=== PATIENT | male | born 1980 | race Hispanic/Latino ===

== ENCOUNTER 2022-11-22 10:50 | Emergency (ER) | payer OTHER ==
[~2022-11-22] VITALS: Ht 172.7 cm; Wt 72.6 kg
[2022-11-22] MEDS ORDERED: ACETAMINOPHEN 500 MG TABLET ONE (11:16)
[2022-11-22] MEDS ORDERED: IBUPROFEN 600 MG TABLET PO ONE (12:30)
[2022-11-22] MEDS ORDERED: PHEN118L19 PO (13:06)
[2022-11-22] MEDS ORDERED: PSEU120T62 PO (13:06)
[2022-11-22] MEDS ORDERED: AMOX-426 PO (13:06)
[2022-11-22] MEDS ORDERED: NIRM1TAB PO (13:06)
[2022-11-22] MEDS ORDERED: IBUP-2070 PO (13:06)
[2022-11-22 14:05] VITALS: BP 124/74
== END 2022-11-22 14:06 | disposition home or self-care (01) ==
LOC: EDH 10:50
DX: U07.1 COVID-19 (principal); I10 Essential (primary) hypertension
CPT/HCPCS: 99283; 87635; 87880; 87804 ×2; C9803

== ENCOUNTER → 2022-11-22 | Outpatient (CLI) | payer OTHER ==
[~2022-11-22] MED LIST: AMOX-426 PO; IBUP-2070 PO; NIRM1TAB PO; PHEN118L19 PO; PSEU120T62 PO
== END | disposition home or self-care (01) ==
LOC: LAB 08:22
PROVIDERS: ATTEND Hospitalist
DX: U07.1 COVID-19 (principal)
CPT/HCPCS: 87426

== ENCOUNTER → 2023-03-25 | Outpatient (CLI) | payer OTHER ==
[2023-03-25 12:28] LABS: BASOPHILS % (AUTO) 1.1 % (0.0-5.0); EOSINOPHILS % (AUTO) 3.8 % (0.0-8.0); HEMATOCRIT 46.5 % (42-54); LYMPHOCYTES % (AUTO) 33.6 % (21.0-51.0); MEAN CORPUSCULAR HEMOGLOBIN 28.4 pg (27.0-33.0); MEAN CORPUSCULAR VOLUME 83.5 fL (79-99); NEUTROPHILS % (AUTO) 54.2 % (40.0-77.0); PLATELET COUNT (AUTO) 241 K/uL (130-400); RED BLOOD CELL COUNT(AUTO) 5.57 MIL/uL (4.50-6.20); RED CELL DISTRIBUTION WIDTH 13.2 % (11.0-15.5); WHITE BLOOD COUNT (AUTO) 6.6 K/uL (4.8-10.8)
[2023-03-25 12:44] LABS: HEMOGLOBIN A1C 5.7 % (4.0-6.0)
[2023-03-25 13:17] LABS: ALBUMIN 5.2 g/dL (3.5-5.0); POTASSIUM 3.8 mmol/L (3.5-5.1); THYROID STIMULATING HORMONE 1.03 uIU/mL (0.36-3.74)
== END | disposition home or self-care (01) ==
LOC: LAB 11:25
PROVIDERS: ATTEND Family Medicine
DX: R53.83 Other fatigue (principal); R14.0 Abdominal distension (gaseous); R03.0 Elevated blood-pressure reading, without diagnosis of hypertension; Z83.3 Family history of diabetes mellitus; Z82.49 Family history of ischemic heart disease and other diseases of the circulatory system
CPT/HCPCS: 36415; 80053; 80061; 82043; 82306; 82607; 82670; 83036; 84402; 84403; 84443; 85025; 86003; 86005; 86677

== ENCOUNTER → 2023-03-28 | Outpatient (CLI) | payer OTHER | END | disposition home or self-care (01) | LOC: DAH 07:34 → RAH 07:34 → DAH 18:23 | PROVIDERS: ATTEND Family Medicine | DX: K76.0 Fatty (change of) liver, not elsewhere classified (principal); R14.0 Abdominal distension (gaseous); R03.0 Elevated blood-pressure reading, without diagnosis of hypertension | CPT/HCPCS: 76700 ==

== ENCOUNTER 2023-05-02 10:34 | Day surgery (SDC) | payer OTHER ==
[~2023-05-02] VITALS: Ht 172.7 cm; Wt 72.6 kg
[2023-05-02] VITALS (10 sets, daily range): BP systolic 103–130; BP diastolic 62–90; PULSE 63–77; RESP 14–17
[~2023-05-02 10:34] MED LIST changes: -AMOX-426 PO; -IBUP-2070 PO; -NIRM1TAB PO; +PANT40TA54 PO; -PHEN118L19 PO; -PSEU120T62 PO
[2023-05-02] MEDS ORDERED: 0.9%NACL 1000ML 1,000 ML IV ONE (10:51)
[2023-05-02] MEDS ORDERED: PROPOFOL 10 MG/ML 20ML VIAL IV ONE (11:32)
[2023-05-02] MEDS ORDERED: LIDOCAINE PF 100MG/5ML (2%) SYRINGE 5ML ONE (11:32)
== END 2023-05-02 12:56 | disposition home or self-care (01) ==
LOC: ENDO 10:34 → DAH 10:34 → ENDO 12:56
PROVIDERS: ATTEND Internal Medicine Gastroenterology
DX: R12 Heartburn (principal); Z20.822 Contact with and (suspected) exposure to COVID-19; K31.89 Other diseases of stomach and duodenum; R14.0 Abdominal distension (gaseous); K29.60 Other gastritis without bleeding; B96.81 Helicobacter pylori [H. pylori] as the cause of diseases classified elsewhere; K76.0 Fatty (change of) liver, not elsewhere classified; R94.5 Abnormal results of liver function studies; K76.89 Other specified diseases of liver; E78.2 Mixed hyperlipidemia; Z79.899 Other long term (current) drug therapy
CPT/HCPCS: 87426; 43239; J7030; J2001; J2704; A4620; A4215; A4223; A4222; A4606; J3490

== ENCOUNTER 2023-05-13 08:47 | Emergency (ER) | payer OTHER ==
[~2023-05-13] VITALS: Ht 172.7 cm; Wt 72.6 kg
[2023-05-13 08:51] VITALS: BP 135/85; PULSE 82; RESP 16; O2SAT 99
[2023-05-13 09:12] LABS: RAPID GROUP A STREP negative (NEGATIVE)
[2023-05-13 09:18] LABS: SARS-CoV-2, RNA, NAAT NEGATIVE SARS CoV-2 (NEGATIVE)
[2023-05-13 09:23] LABS: INFLUENZA TYPE A Negative For Type A (NEGATIVE); INFLUENZA TYPE B Negative For Type B (NEGATIVE)
[2023-05-13] MEDS ORDERED: CETIRIZINE HCL 5 MG TABLET PO ONE ×2 (10:28→10:30)
== END 2023-05-13 10:52 | disposition home or self-care (01) ==
LOC: EDH 08:47
DX: J06.9 Acute upper respiratory infection, unspecified (principal); J02.9 Acute pharyngitis, unspecified; Z20.822 Contact with and (suspected) exposure to COVID-19; Z88.8 Allergy status to other drugs, medicaments and biological substances
CPT/HCPCS: 99283; 87635; 87880; 87804 ×2; C9803

== ENCOUNTER 2023-09-03 08:54 | Emergency (ER) | payer OTHER ==
[~2023-09-03] VITALS: Ht 172.7 cm; Wt 72.6 kg
[2023-09-03 08:59] VITALS: BP 145/81; PULSE 77; RESP 16; O2SAT 99
[2023-09-03 09:58] LABS: RAPID GROUP A STREP negative (NEGATIVE)
[2023-09-03 10:01] LABS: SARS-CoV-2, RNA, NAAT NEGATIVE SARS CoV-2 (NEGATIVE)
[2023-09-03 10:08] LABS: INFLUENZA TYPE A Negative For Type A (NEGATIVE); INFLUENZA TYPE B Negative For Type B (NEGATIVE)
[2023-09-03] MEDS ORDERED: KETOROLAC 30MG VIAL (30MG/ML) IM ONE (10:30)
[2023-09-03] MEDS ORDERED: DEXAMETHASONE SOD PHOSPHATE 4 MG/ML 1ML VIAL IM ONE (10:30)
[2023-09-03] MEDS ORDERED: GUAIFENESIN/DEXTROMETHORPHAN 1 EACH TAB.SR.12H PO ONE (10:30)
[2023-09-03] MEDS ORDERED: BROM118S48 PO (10:59)
[2023-09-03] MEDS ORDERED: FLUT16H NASAL (10:59)
== END 2023-09-03 11:07 | disposition home or self-care (01) ==
LOC: EDH 08:54
DX: J06.9 Acute upper respiratory infection, unspecified (principal); Z20.822 Contact with and (suspected) exposure to COVID-19; Z79.899 Other long term (current) drug therapy; Z88.8 Allergy status to other drugs, medicaments and biological substances
CPT/HCPCS: 99284; 71045; 87635; 87880; 87804 ×2; 96372 ×2; J1100; C9803; J1885

== ENCOUNTER 2024-01-08 11:18 | Emergency (ER) | payer OTHER ==
[~2024-01-08] VITALS: Ht 172.7 cm; Wt 70.3 kg
[~2024-01-08 11:18] MED LIST changes: -AMOX1TAB16 PO; -IBUP-2077 PO
[2024-01-08 11:24] VITALS: BP 159/95; PULSE 99; RESP 14
[2024-01-08 11:47] LABS: RAPID GROUP A STREP negative (NEGATIVE)
[2024-01-08 11:57] LABS: INFLUENZA TYPE A Negative For Type A (NEGATIVE); INFLUENZA TYPE B Negative For Type B (NEGATIVE)
[2024-01-08 12:04] LABS: SARS-CoV-2, RNA, NAAT NEGATIVE SARS CoV-2 (NEGATIVE)
[2024-01-08] MEDS ORDERED: AMOX1TAB16 PO (12:14)
[2024-01-08] MEDS ORDERED: IBUP-2077 PO (12:14)
[2024-01-08 12:38] VITALS: TEMP 99.6
[2024-01-08] MEDS: ACETAMINOPHEN 325 MG TAB PO ONE (12:38)
[2024-01-08] MEDS: CEFTRIAXONE 1G VIAL IM ONE (12:38)
== END 2024-01-08 13:14 | disposition home or self-care (01) ==
LOC: EDH 11:18
DX: R50.9 Fever, unspecified (principal); J03.90 Acute tonsillitis, unspecified; Z20.822 Contact with and (suspected) exposure to COVID-19
CPT/HCPCS: 99283; 87635; 87880; 87804 ×2; 96372; J0696

== ENCOUNTER → 2024-01-08 | Outpatient (CLI) | payer OTHER ==
[~2024-01-08] MED LIST changes: +AMOX1TAB16 PO; +BROM118S48 PO; +FLUT16H NASAL; +IBUP-2077 PO
== END | disposition home or self-care (01) ==
LOC: LAB 09:49
PROVIDERS: ATTEND Hospitalist
DX: Z11.52 Encounter for screening for COVID-19 (principal); Z20.822 Contact with and (suspected) exposure to COVID-19
CPT/HCPCS: 87426

== ENCOUNTER 2024-07-15 10:41 | Emergency (ER) | payer OTHER ==
[~2024-07-15] VITALS: Ht 172.7 cm; Wt 70.3 kg
[~2024-07-15 10:41] MED LIST changes: +AMOX1TAB16 PO; +IBUP-2077 PO
[2024-07-15] MEDS: FLUORESCEIN SODIUM 1 STRIP STRIP OP SCH (11:30)
[2024-07-15] MEDS: TETRACAINE HCL 0.5% 4 ML OPHTH SOLN OP SCH (11:30)
[2024-07-15 12:31] VITALS: BP 141/84; PULSE 74; RESP 20; TEMP 97.5; O2SAT 99
[2024-07-15] MEDS ORDERED: OLOP2.5D12 OP (12:32)
== END 2024-07-15 12:38 | disposition home or self-care (01) ==
LOC: EDH 10:41
DX: H10.13 Acute atopic conjunctivitis, bilateral (principal); Z88.1 Allergy status to other antibiotic agents; Z79.899 Other long term (current) drug therapy
CPT/HCPCS: 99282

== ENCOUNTER → 2025-01-04 | Outpatient (CLI) | payer OTHER ==
[~2025-01-04] MED LIST changes: +OLOP2.5D12 OP
[2025-01-04 09:15] LABS: BASOPHILS # (AUTO) 0.06 K/uL (0.00-0.20); BASOPHILS % (AUTO) 0.9 % (0.0-5.0); EOSINOPHILS # (AUTO) 0.34 K/uL (0.00-0.70); EOSINOPHILS % (AUTO) 5.1 % (0.0-8.0); HEMATOCRIT 45.2 % (42-54); IMMATURE GRANULOCYTE ABSOLUTE 0.02 K/uL (0-1); LYMPHOCYTES # (AUTO) 2.5 K/uL (1.0-4.8); LYMPHOCYTES % (AUTO) 37.1 % (21.0-51.0); MEAN CORPUSCULAR HEMOGLOBIN 28.8 pg (27.0-33.0); MEAN CORPUSCULAR HGB CONC 33.6 g/dL (32.0-36.0); MEAN CORPUSCULAR VOLUME 85.6 fL (79-99); MONOCYTES # (AUTO) 0.5 K/uL (0.1-1.0); MONOCYTES % (AUTO) 6.8 % (3.0-13.0); NEUTROPHILS # (AUTO) 3.3 K/uL (1.8-7.7); NEUTROPHILS % (AUTO) 49.8 % (40.0-77.0); PLATELET COUNT (AUTO) 250 K/uL (130-400); RED BLOOD CELL COUNT(AUTO) 5.28 MIL/uL (4.50-6.20); RED CELL DISTRIBUTION WIDTH 12.9 % (11.0-15.5); WHITE BLOOD COUNT (AUTO) 6.7 K/uL (4.8-10.8)
[2025-01-04 09:45] LABS: ALBUMIN 4.7 g/dL (3.5-5.0); BILIRUBIN,TOTAL 0.6 mg/dL (0.2-1.0); POTASSIUM 4.5 mmol/L (3.5-5.1); THYROID STIMULATING HORMONE 1.49 uIU/mL (0.36-3.74); TOTAL PROTEIN, SERUM 8.4 g/dL (6.0-8.3)
== END | disposition home or self-care (01) ==
LOC: LAB 08:30
PROVIDERS: ATTEND Emergency Medicine
DX: Z00.00 Encounter for general adult medical examination without abnormal findings (principal)
CPT/HCPCS: 36415; 80053; 80061; 84402; 84403; 84443; 85025

== ENCOUNTER 2025-02-09 13:21 | Emergency (ER) | payer OTHER ==
[~2025-02-09] VITALS: Ht 172.7 cm; Wt 72.6 kg
[2025-02-09] MEDS: FAMOTIDINE 20MG VIAL IV ONE (13:45)
[2025-02-09] MEDS: Solu-medROL 125MG VIAL IVP ONE (13:45)
[2025-02-09 14:00] LABS: BASOPHILS # (AUTO) 0.08 K/uL (0.00-0.20); BASOPHILS % (AUTO) 1.1 % (0.0-5.0); EOSINOPHILS # (AUTO) 0.57 K/uL (0.00-0.70); EOSINOPHILS % (AUTO) 8.1 % (0.0-8.0); HEMATOCRIT 41.8 % (42-54); IMMATURE GRANULOCYTE ABSOLUTE 0.02 K/uL (0-1); LYMPHOCYTES # (AUTO) 2.7 K/uL (1.0-4.8); LYMPHOCYTES % (AUTO) 37.9 % (21.0-51.0); MEAN CORPUSCULAR HEMOGLOBIN 29.5 pg (27.0-33.0); MEAN CORPUSCULAR HGB CONC 34.7 g/dL (32.0-36.0); MEAN CORPUSCULAR VOLUME 85.1 fL (79-99); MONOCYTES # (AUTO) 0.6 K/uL (0.1-1.0); MONOCYTES % (AUTO) 7.8 % (3.0-13.0); NEUTROPHILS # (AUTO) 3.2 K/uL (1.8-7.7); NEUTROPHILS % (AUTO) 44.8 % (40.0-77.0); PLATELET COUNT (AUTO) 230 K/uL (130-400); RED BLOOD CELL COUNT(AUTO) 4.91 MIL/uL (4.50-6.20); RED CELL DISTRIBUTION WIDTH 13.2 % (11.0-15.5); WHITE BLOOD COUNT (AUTO) 7.1 K/uL (4.8-10.8)
[2025-02-09 14:12] LABS: INR 1.03 (0.85-1.15); PROTHROMBIN TIME 10.9 SEC (9.6-11.6)
[2025-02-09 14:14] LABS: RAPID GROUP A STREP negative (NEGATIVE)
[2025-02-09 14:17] LABS: SARS-CoV-2, RNA, NAAT NEGATIVE SARS CoV-2 (NEGATIVE)
[2025-02-09 14:20] LABS: CREATININE 0.9 mg/dL (0.5-1.3); POTASSIUM 4.5 mmol/L (3.5-5.1)
[2025-02-09 14:24] LABS: INFLUENZA TYPE A Negative For Type A (NEGATIVE); INFLUENZA TYPE B Negative For Type B (NEGATIVE)
[2025-02-09 14:36] LABS: ADD UA MICROSCOPIC YES; APPEARANCE,URINE CLEAR (CLEAR); BILIRUBIN,URINE NEGATIVE (NEGATIVE); COLOR,URINE LIGHT-YELLOW (YELLOW); GLUCOSE, URINE (UA) NEGATIVE (NEGATIVE); KETONES,URINE NEGATIVE (NEGATIVE); LEUKOCYTE ESTERASE ,URINE NEGATIVE Leu/uL (NEGATIVE); NITRATE,URINE NEGATIVE (NEGATIVE); OCCULT BLOOD,URINE NEGATIVE (NEGATIVE); PROTEIN,URINE NEGATIVE (NEGATIVE); UROBILINOGEN,URINE 0.2 mg/dL (0.2-1.0)
[2025-02-09 14:38] LABS: MUCUS,URINE RARE LPF (None Seen); RBC,URINE 0-1 /HPF (0-1); WBC,URINE 0-1 /HPF (0-1)
[2025-02-09 15:19] VITALS: BP 121/65; PULSE 72; RESP 16; TEMP 97.9; O2SAT 98
--- NOTE | 2025-02-09 15:21 | ERN ---
General Chief Complaint: Allergies Stated Complaint: SINUSITITS Time Seen by MD: 13:24 Source: patient History of Present Illness Initial Comments Patient is here for evaluation of allergic rhinitis and mild cough. Patient has been taking over the counter medications but states it is not working. Allergies: Coded Allergies: clarithromycin (Unverified Allergy, Unknown, 05/13/23) Home Meds Active Scripts Olopatadine HCl (Pataday) 0.2 % Drops, 1 DROP OP DAILY for 30 Days, #5 ML 0 Refills ONE DROP EACH EYE DAILY FOR SEVEN DAYS. Prov:FANG PICKETT MEDIA PROMOTER 07/15/24 Ibuprofen (Ibuprofen 800 mg Tab) 800 Mg Tab, 800 MG PO Q8H PRN for fever or pain, #30 TAB 0 Refills Prov:FANG PICKETT NP 01/08/24 Amoxicillin/Potassium Clav (Amox Tr-K Clv 875-125 mg Tab) 875 Mg-125 Mg Tablet, 1 EACH PO BID for 7 Days, #14 TAB 0 Refills Prov:FANG PICKETT NP 01/08/24 Fluticasone Propionate (Flonase Nasal [place]) 50 Mcg/Actuation [place], 1 SPRAY NASAL ONCE, #1 BOTTLE 0 Refills Prov:CHYNA WOODS [employer] PROFESSOR 09/03/23 D-Methorphan Hb/P-Epd HCl/Bpm (Bromfed Dm Cough Syrup) 2 Mg-30 Mg-10 Mg/5 Ml Syrup, 10 ML PO Q6HPRN PRN for COUGH/COLD SYMPTOMS, #240 ML 0 Refills Prov:CHYNA WOODS [employer] PROFESSOR 09/03/23 Reported Medications Pantoprazole Sodium (Pantoprazole Sodium) 40 Mg Tablet.dr, 40 MG PO ACBKFST, TAB 04/25/23 Past Medical History Past Medical History: Sinusitis Past Surgical History: None ROS Dictation CONSTITUTIONAL: No chills, no fever, no weakness, no diaphoresis, no malaise. HEAD/FACE: No signs of trauma. EENT: No eye pain, no blurred vision, no tearing, no double vision, no ear pain, no ear discharge, no nose pain, no nasal congestion, no throat pain, no throat swelling, no mouth pain. RESPIRATORY: No cough, no orthopnea, no SOB, no stridor, no wheezing. CARDIOVASCULAR: No chest pain, no edema, no palpitations, no syncope. GASTROINTESTINAL/ABDOMINAL: No abdominal pain, no constipation, no diarrhea, no nausea, no vomiting. GENITOURINARY: No abnormal discharge, no dysuria, no frequent urination, no hematuria. No complaints of pain in the genitals. MUSCULOSKELETAL: No back pain, no gout, no joint pain, no joint swelling, no muscle pain, no muscle stiffness, no neck pain. INTEGUMENTARY: No change in color, no change in hair/nails, no dryness, no lesion, no lumps, no rash. NEUROLOGICAL/PSYCH: No anxiety, not depressed, no emotional problem, no headache, no numbness, no pre-existing deficit, no history of seizures, no tremors, no weakness. HEMATOLOGIC/LYMPHATIC: Not anemic, no history of blood clots, no apparent bleeding, no bruising, glands not swollen. All Systems Negative, Except as Noted. Physical Exam Physical Exam Dictation VITAL SIGNS: Reviewed. GENERAL APPEARANCE: Alert, oriented x3, no acute distress, obese. HEAD AND FACE: Non-traumatic. EYES: PERRL, pink conjunctivas, eyelid no trauma, anterior chamber clear. EARS: Pinnas intact and no signs of trauma or erythema. Ear canals clear and no discharge. TMs no erythema. NOSE: No discharge, no bleeding. OROPHARYNX: Mouth normal, teeth no caries, tongue pink. Pharynx clear, no erythema. Tonsils no exudates, no abscesses noted. Mucous membrane moist. NECK: Supple, non-tender, no thyromegaly, no masses, no JVD, no bruits. BREAST: Deferred. CHEST: No tenderness, no crepitus, no paradoxical movement, no retractions. LUNGS: Clear, well-ventilated, symmetric, no rales, no wheezing, no rhonchi, no stridor, good breath sounds bilaterally. HEART: Regular rate, regular rhythm, no murmur, no gallops. VASCULAR: No peripheral edema. ABDOMEN: Soft, positive bowel sounds, nondistended, no guarding, nontender, no rebound, no masses no hepatomegaly, no splenomegaly, no Fernandes's sign, no hernias. RECTAL: Deferred. GENITAL: Deferred. NEUROLOGICAL: Normal speech, gross motor function intact, gross sensory fu nction intact. MUSCULOSKELETAL: Neck nontender, full range of motion, back nontender, full range of motion. EXTREMITIES: Nontender, full range of motion. SKIN: Color pink, dry, no turgor, no rash, no lacerations, no abrasions, no contusions. LYMPHATICS: Deferred. Results Laboratory and Microbiology Lab and Micro Result Laboratory Tests Test 02/09/25 13:49 02/09/25 13:53 02/09/25 14:25 Influenza Type A Antigen Negative For Type A Influenza Type B Antigen Negative For Type B SARS-CoV-2, RNA, NAAT NEGATIVE SARS CoV-2 Group A Streptococcus Rapid negative (NEGATIVE) White Blood Count 7.1 K/uL (4.8-10.8) Red Blood Count 4.91 MIL/uL (4.50-6.20) Hemoglobin 14.5 g/dL (14.0-18.0) Hematocrit 41.8 % (42-54) L Mean Corpuscular Volume 85.1 fL (79-99) Mean Corpuscular Hemoglobin 29.5 pg (27.0-33.0) Mean Corpuscular Hemoglobin Concent 34.7 g/dL (32.0-36.0) Red Cell Distribution Width 13.2 % (11.0-15.5) Platelet Count 230 K/uL (130-400) Mean Platelet Volume 9.0 fL (7.5-10.5) Immature Granulocyte % (Auto) 0.3 % (0-1) Neutrophils (%) (Auto) 44.8 % (40.0-77.0) Lymphocytes (%) (Auto) 37.9 % (21.0-51.0) Monocytes (%) (Auto) 7.8 % (3.0-13.0) Eosinophils (%) (Auto) 8.1 % (0.0-8.0) H Basophils (%) (Auto) 1.1 % (0.0-5.0) Neutrophils # (Auto) 3.2 K/uL (1.8-7.7) Lymphocytes # (Auto) 2.7 K/uL (1.0-4.8) Monocytes # (Auto) 0.6 K/uL (0.1-1.0) Eosinophils # (Auto) 0.57 K/uL (0.00-0.70) Basophils # (Auto) 0.08 K/uL (0.00-0.20) Absolute Immature Granulocyte (auto 0.02 K/uL (0-1) Nucleated Red Blood Cells 0.0 % (0.0-0.19) Prothrombin Time 10.9 SEC (9.6-11.6) Prothromb Time International Ratio 1.03 (0.85-1.15) Sodium Level 142 mmol/L (136-145) Potassium Level 4.5 mmol/L (3.5-5.1) Chloride Level 103 mmol/L (101-111) Carbon Dioxide Level 30 mmol/L (21-32) Blood Urea Nitrogen 20 mg/dL (7-18) H Creatinine 0.9 mg/dL (0.5-1.3) Glomerular Filtration Rate Calc 107 mL/min (>90) Random Glucose 100 mg/dL (70-105) Total Calcium 9.2 mg/dL (8.5-10.1) Triglycerides Level 335 mg/dL (30-200) H Cholesterol Level 224 mg/dL (<200) H LDL Cholesterol 156 mg/dL (0-99) H HDL Cholesterol 34 mg/dL (29-71) Urine Color LIGHT-YELLOW (YELLOW) Urine Appearance CLEAR (CLEAR) Urine pH 6.0 (5.0-8.0) Urine Specific [place] 1.027 (1.001-1.031) Urine Protein NEGATIVE mg/dL (NEGATIVE) Urine Glucose (UA) NEGATIVE mg/dL (NEGATIVE) Urine Ketones NEGATIVE mg/dL (NEGATIVE) Urine Occult Blood NEGATIVE (NEGATIVE) Urine Nitrate NEGATIVE (NEGATIVE) Urine Bilirubin NEGATIVE mg/dL (NEGATIVE) Urine Urobilinogen 0.2 mg/dL (0.2-1.0) Urine Leukocyte Esterase NEGATIVE [place]/uL Urine RBC 0-1 /HPF (0-1) Urine WBC 0-1 /HPF (0-1) Urine Bacteria None /HPF (None Seen) Labs Reviewed?: Yes EKG/XRAY/US/CT/MRI X-RAY Comment chest xray -nad MDM MDM: Differential diagnosis:allergic rhinitis, sinusitis, uri Rationale: Tests considered and ordered secondary to shared decision making include: Previous outside records reviewed: Old ER visits. Risk of complication and/or morbidity or mortality of patient management: None Medications-Per medication reconciliation Patient is a 44 y/o male here for evaluation of uri symptoms and allergic sensation. Laboratory work up negative for acute findings. Patient feels better with steroids and Pepcid states he is ready to be discharged. ED Course Orders Procedure Category Date Status Time Cbc With Differential LAB 02/09/25 Complete 13:28 Prothrombin Time With LAB 02/09/25 Complete INR 13:28 Lipid Panel LAB 02/09/25 Complete 13:28 Chest 1vw RAD 02/09/25 Taken 13:28 Urinalysis Profile LAB 02/09/25 Complete 13:28 Basic Metabolic Panel LAB 02/09/25 Complete 13:28 Methylprednisolone PHA 02/09/25 Complete Succ 125mg (Solu-Medr 13:30 Famotidine 20mg Vial PHA 02/09/25 Complete (Pepcid 20mg Vial) 13:30 Covid Rna Naat LAB 02/09/25 Complete 13:28 Influenza Type A & B, LAB 02/09/25 Complete Rapid 13:28 Rapid (Group A Strep) LAB 02/09/25 Complete 13:28 Hepatic Function Panel LAB 02/09/25 Logged 14:52 Current Medications Medications (Trade) Dose Ordered Sig/Jarocho Route PRN Reason Start Time Stop Time Status Last Admin Dose Admin Famotidine (Pepcid 20mg Vial) 20 mg ONCE ONCE IV 02/09/25 13:30 02/09/25 13:33 DC 02/09/25 13:45 Methylprednisolone Sodium Succinate (Solu-medROL 125MG) 125 mg ONCE ONCE IVP 02/09/25 13:30 02/09/25 13:33 DC 02/09/25 13:45 Vital Signs Date Time Temp Pulse Resp B/P (MAP) Pulse Ox O2 Delivery O2 Flow Rate FiO2 02/09/25 13:22 98.8 68 16 120/79 98 Room Air 0 DX & DISP Disposition: Discharge Departure Impression: Primary Impression: Allergic rhinitis Condition: Stable Referrals: SELF,REFERRAL (PCP) CARMINE COATES MD Time of Disposition: 15:20 KALI DOMINGUEZ MD February 09, 2025 15:21
[2025-02-09 15:32] LABS: ALBUMIN 4.5 g/dL (3.5-5.0); BILIRUBIN,DIRECT 0.1 mg/dL (0.0-0.3); BILIRUBIN,TOTAL 0.6 mg/dL (0.2-1.0); TOTAL PROTEIN, SERUM 7.7 g/dL (6.0-8.3)
--- NOTE | 2025-02-09 15:32 | HMCIMG ---
Exam Type: CHEST 1VW Clinical Information: cp Comparison: None Findings: The lungs are clear of infiltrates. The heart is normal in size. The bony and soft tissue structures of the chest are unremarkable. Impression: Clear lungs.
== END 2025-02-09 15:26 | disposition home or self-care (01) ==
LOC: EDH 13:21
DX: J30.9 Allergic rhinitis, unspecified (principal); Z20.822 Contact with and (suspected) exposure to COVID-19
CPT/HCPCS: 99284; 96374; 71045; 87635; 96375; 80061; 80076; 80048; 85025; 85610; 87880; 87804 ×2; 81001; 36415; J2919; J3490

== ENCOUNTER → 2025-08-19 | Outpatient (CLI) | payer OTHER ==
[2025-08-19 08:05] LABS: IMMATURE GRANULOCYTE ABSOLUTE 0.01 K/uL (0-1); NUCLEATED RED BLOOD CELLS 0.0 % (0.0-0.19); PLATELET COUNT (AUTO) 242 K/uL (130-400); RED BLOOD CELL COUNT(AUTO) 5.50 MIL/uL (4.50-6.20); RED CELL DISTRIBUTION WIDTH 13.3 % (11.0-15.5); WHITE BLOOD COUNT (AUTO) 5.6 K/uL (4.8-10.8)
[2025-08-19 08:12] LABS: ERYTHROCYTE SEDIMENTATION RATE 3 MM/HR (0-15)
[2025-08-19 08:27] LABS: ADD UA MICROSCOPIC NO; APPEARANCE,URINE CLEAR (CLEAR); GLUCOSE, URINE (UA) NEGATIVE (NEGATIVE); LEUKOCYTE ESTERASE ,URINE NEGATIVE Leu/uL (NEGATIVE); NITRATE,URINE NEGATIVE (NEGATIVE); OCCULT BLOOD,URINE NEGATIVE (NEGATIVE)
[2025-08-19 08:48] LABS: ASPARTATE AMINOTRANSFERASE 40.0 U/L (10-37); CREATININE 1.2 mg/dL (0.5-1.3); GLOMERULAR FILTR. RATE CALC 76.0 mL/min (>90); GLUCOSE,RANDOM 106.0 mg/dL (70-105); LDL DIRECT 158.0 mg/dL (0-99); SODIUM SERUM 137.0 mmol/L (136-145); TOTAL PROTEIN, SERUM 8.4 g/dL (6.0-8.3); UREA NITROGEN, BLOOD 20.0 mg/dL (7-18)
== END | disposition home or self-care (01) ==
LOC: LAB 07:03
PROVIDERS: ATTEND Internal Medicine
DX: E78.5 Hyperlipidemia, unspecified (principal); E55.9 Vitamin D deficiency, unspecified; K76.0 Fatty (change of) liver, not elsewhere classified; R53.83 Other fatigue; Z13.1 Encounter for screening for diabetes mellitus; Z13.220 Encounter for screening for lipoid disorders
CPT/HCPCS: 36415; 80053; 80061; 81003; 82043; 82248; 82306; 82570; 82607; 83036; 84402; 84403; 84443; 84550; 85025; 85651; 86140; 87086

== ENCOUNTER → 2025-08-23 | Outpatient (CLI) | payer OTHER ==
--- NOTE | 2025-08-24 00:24 | HMCIMG ---
EXAM: US Abdomen complete CLINICAL HISTORY: Fatty liver TECHNIQUE: Real-time ultrasound of the abdomen (complete) with image documentation. COMPARISON: None provided. FINDINGS: LIVER: Measures 13 cm. Increased hepatic echogenicity consistent with fatty liver. No focal mass or intrahepatic biliary dilatation. Liver contours smooth. GALLBLADDER: Wall measures 2 mm. No gallstones or pericholecystic fluid. COMMON BILE DUCT: CBD measures 3 mm. No biliary dilatation. PANCREAS: Within normal limits in the visualized portions. KIDNEYS: Right kidney measures 11.1 ??? 5.1 ??? 5.0 cm. Left kidney measures 11.3 ??? 4.8 ??? 5.4 cm. Normal cortical echotexture. No renal mass, calculus, or hydronephrosis. SPLEEN: Measures 11.5 ??? 4.1 ??? 4.3 cm. Normal echotexture. No focal lesion. AORTA: Within normal limits. No aneurysm. IVC: Within normal limits. MISCELLANEOUS: No additional significant findings. IMPRESSION: 1. Hepatic steatosis. /[place]
== END | disposition home or self-care (01) ==
LOC: RAH 06:53
PROVIDERS: ATTEND Internal Medicine
DX: K76.0 Fatty (change of) liver, not elsewhere classified (principal)
CPT/HCPCS: 76700

== ENCOUNTER → 2025-09-26 | Outpatient (CLI) | payer OTHER ==
[2025-09-26 08:09] LABS: ASPARTATE AMINOTRANSFERASE 36.0 U/L (10-37); CREATININE 1.1 mg/dL (0.5-1.3); GLOMERULAR FILTR. RATE CALC 83.0 mL/min (>90); GLUCOSE,RANDOM 108.0 mg/dL (70-105); SODIUM SERUM 145.0 mmol/L (136-145); TOTAL PROTEIN, SERUM 7.5 g/dL (6.0-8.3); UREA NITROGEN, BLOOD 13.0 mg/dL (7-18)
== END | disposition home or self-care (01) ==
LOC: LAB 07:45
PROVIDERS: ATTEND Internal Medicine
DX: K76.0 Fatty (change of) liver, not elsewhere classified (principal); N18.2 Chronic kidney disease, stage 2 (mild); N23 Unspecified renal colic
CPT/HCPCS: 36415; 80053